=== PATIENT | male | born 1940 | race Caucasian/White ===

== ENCOUNTER → 2017-04-06 | Outpatient (CLI) | payer MEDICARE ==
[~2017-04-06] MED LIST: ACETAMINOPHEN &1 TA1 PO; ADVIL,MOTRIN,R200 MG PO; ALBUTEROL; ALBUTEROL0.09 MG/A2 INH; ALPRAZOLAM0.5 M3 PO; AMOXICILLIN500 MG PO; ANTIBIOTIC O500 U/GM TP; ARICEPT5 MG PO; ASCRIPTIN325 MG; ASPIRIN81 M1 PO; AUGMENTIN 875 M1 TAB PO; BIOTIN1 MG PO; CRESTOR10 MG PO; CRESTOR5 MG PO; CYMBALTA30 MG PO; CYMBALTA60 M1 PO; DAYPRO600 M1 PO; DILTIAZEM; DOXYCYCLINE MO100 M1 PO; DOXYCYCLINE100 M3 PO; Diltiazem180 MG PO; Duragesic 25 M25 MCG TD; FEROSUL325 MG PO; FISH OIL; FISH OIL 10001000 MG; FLOMAX0.4 MG PO; IMDUR SA30 MG PO; INDOCIN SR75 MG; KEFLEX500 MG PO; LEVETIRACETAM750 M1 PO; LISINOPRIL40 MG PO; Lovenox30 MG/0.3; METAMUCIL1 PDR; MIRTAZAPINE15 MG PO; MULTI VITAMINS1 TAB PO; NEURONTIN100 MG PO; NORFLEX100 MG PO; NORVASC5 MG PO; OMEPRAZOLE20 MG PO; ONDANSETRON ODT8 MG PO; OXYMETAZOLINE; PERCOCET; PERCOCET 325 MG1 TA4; PREDNISONE5 MG PO; PROTONIX40 MG PO; Ranitidine Hyd150 MG PO; SAW PALMETTO500 MG PO; SERTRALINE50 MG PO; SPIRIVA -- 3018 MCG INH; SPIRIVA18 MCG IH; TAXOTERE20 MG/ML IV; TESTOSTERON200 MG/ML IM; Tegretol-Xr 10100 MG PO; ULTRAM; ULTRAM50 MG; VICODIN 5/500 505 MG PO; VICODIN ES 7501 TAB PO; VISTARIL25 M1 PO; VITAMIN D1000 IU PO; XANAX0.25 MG PO; XGEVA120 MG/1.7 SC; ZYTIGA250 M1 PO
== END | disposition home or self-care (01) ==
LOC: US 13:11
DX: I65.23 Occlusion and stenosis of bilateral carotid arteries (principal)

== ENCOUNTER → 2017-06-03 | Outpatient (CLI) | payer MEDICARE ==
[2017-06-03 12:05] LABS: ALBUMIN 3.1 gm/dl (3.1-4.5); CREATININE 1.61 mg/dL (0.70-1.30); FREE T4 0.88 ng/dl (0.76-1.46); POTASSIUM 4.8 mmol/L (3.5-5.1); TOTAL PROTEIN 6.3 gm/dL (6.4-8.2)
[2017-06-03 12:11] LABS: THYROID STIM HORMONE (HS) 2.45 uIU/ml (0.358-4.75)
[2017-06-03 14:35] LABS: HEMATOCRIT 24.7 % (42.0-52.0); HEMOGLOBIN 7.6 g/dl (14.0-18.0); MEAN CELL VOLUME 91.8 fl (80.0-94.0); MEAN CORPUSCULAR HGB 28.3 pg (27.0-31.0); MEAN CORPUSCULAR HGB CONC 30.8 g/dl (33.0-37.0); MEAN PLATELET VOLUME 10.7 fl (9.6-12.3); PLATELET COUNT AUTOMATED 132 10*3/uL (130-400); RED BLOOD COUNT 2.69 10*6/uL (4.50-5.90); RED CELL DISTRI WIDTH 16.9 % (0-14.5); WHITE BLOOD COUNT 3.1 10*3/uL (4.8-10.8)
[2017-06-03 15:04] LABS: BASOPHILS 1 % (0-1); PLATELET SUFFICIENCY LOW (NORMAL); TOTAL CELLS COUNTED 100 #CELLS
[2017-06-03 15:05] LABS: OVALOCYTES FEW
[2017-06-03 15:07] LABS: MICROCYTOSIS SLIGHT
[2017-06-03 15:08] LABS: SCHISTOCYTES FEW
[2017-06-03 15:09] LABS: POLYCHROMASIA SLIGHT
== END ==
LOC: MRI 05-29 08:00 → CP 05-29 10:00 → MRI 09:00 → LAB 09:00
PROVIDERS: Psychiatry & Neurology Neurology
DX: R41.3 Other amnesia (principal); R56.9 Unspecified convulsions; R55 Syncope and collapse

== ENCOUNTER → 2017-06-13 | Outpatient (CLI) | payer MEDICARE ==
[2017-06-13 17:04] LABS: VITAMIN D, 25-HYDROXY 21.3 ng/mL (30-100)
[2017-06-13 17:29] LABS: PTH INTACT 245.2 pg/mL (14.0-72.0)
== END | disposition home or self-care (01) ==
LOC: LAB 14:30
PROVIDERS: Psychiatry & Neurology Neurology
DX: E83.51 Hypocalcemia (principal); R41.3 Other amnesia